=== PATIENT | female | born 1935 | race Caucasian/White ===

== ENCOUNTER 2017-06-28 14:54 | Emergency (ER) | payer OTHER ==
[2017-06-28] MEDS ORDERED: ONDANSETRON 4 MG/2 ML VIAL ONE (15:12)
[2017-06-28 15:26] LABS: Absolute Lymphocytes (CBC) 1.2 K/uL (0.7-4.9); Absolute Monocytes 0.6 K/uL (0.1-1.3); Absolute Neutrophil 10.5 K/uL (1.8-8.0); Basophils % 0.4 % (0-1.3); Eosinophils % 1.4 % (0-4.4); Hematocrit 36.4 % (36.0-45.0); Lymphocytes % 9.6 % (15.3-44.8); MCV 85.8 fL (80-100); MPV 7.8 fL (7.6-11.3); Monocytes % 4.6 % (3.3-12.3); RBC Red Blood Cell Count 4.25 M/uL (3.86-4.86)
[2017-06-28 15:32] LABS: Protime INR 0.86
[2017-06-28 15:34] LABS: BUN Blood Urea Nitrogen 35 mg/dL (6-20); Bicarbonate 34 mEq/L (21-31); Potassium 4.3 mEq/L (3.6-5.0); Sodium Level 128 mEq/L (135-145)
[2017-06-28 15:42] LABS: Glucose Level 501 mg/dL (65-120)
[2017-06-28] MEDS ORDERED: MEPERIDINE HCL 25 MG/0.5 ML ONE ×3 (15:48→17:04)
--- NOTE | 2017-06-28 15:48 | RAD REPORT ---
EXAM DESCRIPTION: CT - Head C Spine Cap Wo Con - 06/28/2017 3:28 pm CLINICAL HISTORY: Found on ground, head, neck, chest and abdomen pain, visual bruising COMPARISON: CT imaging October 2016. TECHNIQUE: Axial [address] head images were obtained. Axial [address] cervical spine images were obtain ed with sagittal and coronal reconstruction images reviewed. Axial 5 mm images of the chest, abdomen and pelvis were obtained. All CT scans are performed using dose optimization technique as appropriate and may include automated exposure control or mA/KV adjustment according to patient size. FINDINGS: Patient has baseline of moderate atrophy and chronic ischemic change. Ventricular size is in proportion. No epidural or subdural hematoma. There is no subarachnoid hemorrhage identifiable. Th ere is a linear hyperdensity along the midline tiffani not seen on any prior CT head imaging. This would be an unusual acute hemorrhage pattern. A small brainstem hemorrhage is possible triggering the sync opal event. Shear injury due to the fall would be possible as well. No midline shift or mass effect. Arterial and physiologic calcifications are present. Mastoid air katina ls and paranasal sinuses are clear. No skull fracture seen. The patient has a very large left frontal scalp hematoma. Cervical bodies are normal in height and alignment. No fracture or acute bone finding.Moderately prom inent degenerative changes are present involving the transverse ligament posterior to the dens and th e dens anterior arch C1 level. There is C2-3 disc space narrowing along with disc space narrowing at C 4-5, C5-6 and C6-7. Mild right foraminal encroachment present at C4-5. A more prominent foraminal e ncroachment on the right at C5-6. Mild bilateral foraminal encroachment at C6-7.No prevertebral soft tissue thickening or paraspinal mass.Central canal detail is inherently limited on CT imaging. CT chest shows no pneumothorax, pulmonary contusion or pleural fluid collection. Fibrotic lung change s are present. No mediastinal hematoma and the aorta and pulmonary arteries are unremarkable. No ches t will mass or abnormal axillary finding. No displaced rib fracture or other significant bony finding . Borderline to mild cardiomegaly is present. No pericardial thickening or effusion. Pacemaker is in place. Contusion or edema changes are present overlying the left shoulder joint and probably both hi p joints. CT abdomen and pelvis show no injury to solid abdominal viscera. Cholecystectomy clips are present. N o biliary tree dilatation. No acute bowel injury and no acute bowel process seen. A large duodenal di verticulum is seen. There is moderately large stool volume throughout the colon. Colon anastomotic si te in the sigmoid region shows no acute finding. No free air, free fluid or abnormal stranding. No he rnia, mass or bulky lymphadenopathy. No urinary bladder abnormality. Uterus is absent. Thoracic and lumbar spine degenerative changes are present without acute finding. IMPRESSION: Linear hyperdensity in the midline tiffani is present not seen on any prior imaging. Brains tem hemorrhage is suspected. This could be the precipitating event triggering syncope or could be sec ondary to the fall. No other intracranial hemorrhage findings. Patient has moderate severity atrophy and chronic ischemic change. There is a large left frontal scalp hematoma without skull fracture. Cervical spine degenerative changes are present as detailed. No fracture or acute finding. No significant CT Chest finding. No acute injury to the solid abdominal visceral or bowel. No free fluid or other acute traumatic abdo rossi or pelvic finding. Urinary bladder is distended.
[2017-06-28] MEDS ORDERED: Nicardipine/NS 25 MG/250 ML KIT IV ONE ×2 (15:54→19:19)
--- NOTE | 2017-06-28 16:11 | RAD REPORT ---
EXAM DESCRIPTION: RAD - Hand Left 3 View - 06/28/2017 3:56 pm CLINICAL HISTORY: Fall, left hand pain COMPARISON: None. FINDINGS: Prominent radiocarpal arthritic changes are present. Significant arthritic changes also pr esent at the first carpometacarpal joint. DIP and PIP joint arthritic changes are also seen. Small av ulsion fracture is suspected in the region of the ulnar styloid with adjacent soft tissue swelling. L ucency is also noted in the distal radius along the ulnar aspect on a single oblique projection which could be additional fracture.
--- NOTE | 2017-06-28 16:13 | RAD REPORT ---
EXAM DESCRIPTION: RAD - Shoulder Left 2 View - 06/28/2017 3:59 pm CLINICAL HISTORY: Left shoulder pain and hematoma. COMPARISON: None. FINDINGS: Soft tissue swelling is seen along the superolateral aspect of the shoulder. Glenohumeral arthritic changes are noted. No acute fracture or dislocation is seen.
--- NOTE | 2017-06-28 16:15 | RAD REPORT ---
EXAM DESCRIPTION: RAD - Hand Right 3 View - 06/28/2017 3:59 pm CLINICAL HISTORY: Pain and swelling. COMPARISON: None. FINDINGS: Prominent radiocarpal arthritic changes are present. Deformity of the distal radius has a chronic appearance. Diffuse osteopenia is seen. Mild soft tissue swelling. Significant ulnar positive variance is present. An acute fracture is not detected.
--- NOTE | 2017-06-28 16:32 | EDPHYS ---
Physician Documentation [facility] Name: Haven Lee Age: 81 yrs Sex: Female : 1935 Arrival Date: 06/28/2017 Time: 14:56 Bed 5 Private MD: ED Physician Omid Soliz HPI: 06/28 15:14 This 81 yrs old Female presents to ER via Unassigned with complaints of fall, rn head injury. 15:14 Details of fall: The patient fell from seated position. Onset: The symptoms/episode rn began/occurred just prior to arrival. Associated injuries: The patient sustained injury to the head, neck injury, injury to the abdomen. Severity of symptoms: At their worst the symptoms were moderate, in the emergency department the symptoms are unchanged. It is unknown whether or not the patient has had similar symptoms in the past. Per half-way, presents after fall, normally in wheelchair, unsure how fall, standing/sitting, hit head, + swelling/hematoma of scalp/left shoulder/bilateral hands/abd pain. . Historical: - Allergies: 15:27 Morphine; dm5 15:27 Sulfa (Sulfonamide Antibiotics); dm5 - PMHx: 15:27 Altered Mental Status; Alzheimers; Anemia; Angina; Arthritis; Cerebral infarction; CHF; dm5 Chronic ischemic heart disease; Chronic pain; CVA; Dementia; Depression; Diabetes - IDDM; Diverticulitis; Gait disturbance; Hyperlipidemia; Hypertension; insomnia; Migraines; MRSA; neuropathy; Repeated falls; UTI; angina pectoris; - Immunization history:: Adult Immunizations up to date. - Social history:: Smoking status: Patient/guardian denies using tobacco. - Immunization history: Last tetanus immunization: unknown. - Family history:: not pertinent. - Ebola Screening: : Patient negative for fever greater than or equal to 101.5 degrees Fahrenheit, and additional compatible Ebola Virus Disease symptoms Patient denies exposure to infectious person Patient denies travel to an Ebola-affected area in the 21 days before illness onset No symptoms or risks identified at this time. - Hospitalizations: : No recent hospitalization is reported. ROS: 15:14 Constitutional: Negative for fever, chills, and weight loss, Eyes: Negative for injury, rn pain, redness, and discharge, Neck: + neck pain Cardiovascular: Negative for chest pain, palpitations, and edema, Respiratory: Negative for shortness of breath, cough, wheezing, and pleuritic chest pain, Abdomen/GI: + abd pain and nausea MS/Extremity: Negative for injury and deformity, Skin: + ecchymosis Neuro: + headache and generalized weakness Exam: 15:14 Constitutional: Elderly female, holding head Head/Face: Normocephalic, + left rn scalp/forehead moderate hematoma that extends to left temporal region Eyes: Left pupil irregular (previous surgery), EOMI, no racoon eyes Neck: no midline tenderness Cardiovascular: Regular rate and rhythm with a normal S1 and S2. No gallops, murmurs, or rubs. Normal PMI, no JVD. No pulse deficits. Respiratory: Lungs have equal breath sounds bilaterally, clear to auscultation and percussion. No rales, rhonchi or wheezes noted. No increased work of breathing, no retractions or nasal flaring. Abdomen/GI: soft, mid abd tenderness, no rebound MS/ Extremity: Pulses equal, no cyanosis. Neurovascular intact. + left shoulder/bilateral hands with hematomas, mild painful ROM left shoulder Neuro: Awake, GCS 15, oriented to person, and situation. Cranial nerves II-XII grossly intact. Motor strength 5/5 in all extremities. Sensory grossly intact. Vital Signs: 15:08 BP 182 / 77; Pulse 69; Resp 19; Temp 99.4(O); Pulse Ox 100% on 2 lpm NC; Weight 79.38 dm5 kg (R); 15:32 BP 195 / 84; Pulse 70; Resp 17; Pulse Ox 100% on 2 lpm NC; dm5 15:45 BP 199 / 87; Pulse 68; Resp 19; Pulse Ox 99% on 2 lpm NC; dm5 16:00 BP 196 / 85; Pulse 66; Resp 16; Pulse Ox 100% on 2 lpm NC; dm5 16:11 BP 165 / 76; Pulse 66; Resp 19; Pulse Ox 100% ; dm5 16:15 BP 175 / 72; Pulse 66; Resp 16; Pulse Ox 100% on 2 lpm NC; dm5 16:22 BP 170 / 70; Pulse 67; Resp 15; Pulse Ox 99% on 2 lpm NC; dm5 16:32 BP 164 / 66; Pulse 67; Resp 14; Temp 99.5(O); Pulse Ox 99% on 2 lpm NC; dm5 17:00 BP 153 / 62; Pulse 65; Resp 14; Pulse Ox 99% on 2 lpm NC; dm5 17:07 BP 153 / 62; Pulse 65; Resp 14; Pulse Ox 99% on 2 lpm NC; dm5 17:15 BP 153 / 65; Pulse 64; Resp 13; Pulse Ox 99% on 2 lpm NC; dm5 17:30 BP 145 / 63; Pulse 63; Resp 13; Pulse Ox 99% on 2 lpm NC; dm5 17:45 BP 147 / 63; Pulse 62; Resp 12; Pulse Ox 100% on 2 lpm NC; dm5 18:04 BP 155 / 63; Pulse 63; Resp 12; Pulse Ox 100% on 2 lpm NC; dm5 18:15 BP 123 / 68; Pulse 99; Resp 13; Pulse Ox 99% on 2 lpm NC; dm5 18:30 BP 147 / 61; Pulse 62; Resp 13; Pulse Ox 99% on 2 lpm NC; dm5 18:45 BP 125 / 64; Pulse 63; Resp 16; Pulse Ox 98% on 2 lpm NC; dm5 18:48 BP 140 / 51; Pulse 62; Resp 17; Pulse Ox 97% on 2 lpm NC; dm5 19:19 BP 147 / 62; Pulse 62; Resp 12; Pulse Ox 99% on 2 lpm NC; mt NIH Stroke Scale Scores: 15:30 NIHSS Score: 3 dm5 Josue Coma Score: 15:00 Eye Response: spontaneous(4). Verbal Response: confused(4). Motor Response: obeys dm5 commands(6). Total: 14. 15:55 Eye Response: spontaneous(4). Verbal Response: confused(4). Motor Response: obeys dm5 commands(6). Total: 14. Trauma Score (Adult): 15:00 Eye Response: spontaneous(1); Verbal Response: confused(1); Motor Response: obeys dm5 commands(2); Systolic BP: > 89 mm Hg(4); Respiratory Rate: 10 to 29 per min(4); [place] Score: 14; Trauma Score: 12 15:55 Eye Response: spontaneous(1); Verbal Response: confused(1); Motor Response: obeys dm5 commands(2); Systolic BP: > 89 mm Hg(4); Respiratory Rate: 10 to 29 per min(4); Josue Score: 14; Trauma Score: 12 16:52 Eye Response: spontaneous(1); Verbal Response: confused(1); Motor Response: obeys dm5 commands(2); Systolic BP: > 89 mm Hg(4); Respiratory Rate: 10 to 29 per min(4); [place] Score: 14; Trauma Score: 12 17:49 Eye Response: spontaneous(1); Verbal Response: confused(1); Motor Response: obeys dm5 commands(2); Systolic BP: > 89 mm Hg(4); Respiratory Rate: 10 to 29 per min(4); Josue Score: 14; Trauma Score: 12 18:45 Eye Response: spontaneous(1); Verbal Response: confused(1); Motor Response: obeys dm5 commands(2); Systolic BP: > 89 mm Hg(4); Respiratory Rate: 10 to 29 per min(4); [place] Score: 14; Trauma Score: 12 MDM: 15:02 Patient medically screened. rn 15:50 ED course: Notified by radiology of hyperdense area in brainstem, some concern by phd intern that may have been precipitating event as brainstem hemorrhage. Organizing transfer to [facility].. 16:29 Differential diagnosis: closed head injury, contusion, fracture, multiple trauma. Data rn reviewed: vital signs, nurses notes, lab test result(s), radiologic studies, CT scan, plain films. 16:29 Counseling: I had a detailed discussion with the patient and/or guardian regarding: the rn historical points, exam findings, and any diagnostic results supporting the discharge/admit diagnosis, lab results, radiology results, the need to transfer to another facility, for higher level of care, [facility] does not immediately have the required specialist. ED course: Pt accepted for transfer to [facility] trauma service for further eval/consult. . 06/28 15:02 Order name: Basic Metabolic Panel; Complete Time: 16:04 rn 06/28 15:02 Order name: CBC with Diff; Complete Time: 15:48 rn 06/28 15:02 Order name: Creatinine for Radiology; Complete Time: 15:39 rn 06/28 15:02 Order name: Type And Screen; Complete Time: 16:28 rn 06/28 15:03 Order name: PT-INR; Complete Time: 15:43 rn 06/28 15:03 Order name: Ptt, Activated; Complete Time: 15:43 rn 06/28 15:02 Order name: CT Traumagram (Head C Spine CAP wo con); Complete Time: 16:32 rn 06/28 15:04 Order name: Ketone, Serum; Complete Time: 16:04 rn 06/28 15:04 Order name: XRAY Hand RIGHT 3 View; Complete Time: 16:23 rn 06/28 15:04 Order name: XRAY Hand LEFT 3 View; Complete Time: 16:23 rn 06/28 16:29 Order name: ABO/RH no charge; Complete Time: 16:32 EDMS 06/28 18:10 Order name: Glucose, Ancillary Testing EDMS 06/28 18:11 Order name: Glucose, Ancillary Testing EDMS 06/28 19:15 Order name: Glucose, Ancillary Testing EDMS 06/28 15:02 Order name: Labs collected and sent; Complete Time: 15:42 rn 06/28 15:04 Order name: Glucose Level; Complete Time: 15:43 rn 06/28 15:04 Order name: XRAY Shoulder LEFT 2 view; Complete Time: 16:23 rn 06/28 16:04 Order name: Splint - Sugar Tong - Forearm: left arm and right arm; Complete Time: 17:22 rn 06/28 17:21 Order name: EKG Electrocardiogram; Complete Time: 17:22 EDMS Administered Medications: 15:15 Drug: Zofran 4 mg Route: IVP; Site: left antecubital; dm5 16:54 Follow up: Response: No adverse reaction; Nausea is decreased dm5 15:55 Drug: Demerol - Meperidine 12.5 mg Route: IVP; Site: left antecubital; dm5 16:53 Follow up: Response: No adverse reaction; No adverse reaction. patient still complains dm5 of pain and forgets that she was given pain medication 16:00 Drug: Cardene 5 mg/hr Route: IV; Rate: 5 mg/hr; Site: left antecubital; dm5 16:15 Follow up: Rate change 7.5 mg/hr; cardene rate change ordered verbally by Dr. Bautista dm5 17:00 Follow up: Rate change 10 mg/hr; cardene rate change to 10mg/hr dm5 18:45 Follow up: Rate change 7.5 mg/hr; cardene adjust to 7.5 mg/hr dm5 19:40 Follow up: IV Status: Infusion continued upon transfer; IV Intake: 250ml ; a second bag dm5 of cardene started prior to pt transfer 16:12 Drug: Demerol - Meperidine 12.5 mg Route: IVP; Site: right antecubital; dm5 16:53 Follow up: Response: No adverse reaction; No adverse reaction. Pt still complains of dm5 pain and forgets that she has been given medication 17:06 Drug: Demerol - Meperidine 12.5 mg Route: IVP; Site: right antecubital; dm5 17:39 Follow up: Response: No adverse reaction; Pain is unchanged, physician notified dm5 18:16 Drug: Insulin Regular Human 8 units {Co-Signature: aa5 (Mindi Arizmendi RN).} Route: dm5 Sub-Q; Site: left upper arm; 19:40 Follow up: Response: Blood sugar is lowered dm5 Point of Care Testing: Blood Glucose: 15:05 Blood Glucose: 435 mg/dL; dm5 Ranges: Critical Glucose Levels:Adult <50 mg/dl or >400 mg/dl <40 mg/dl or >180 mg/dl Disposition: 06/28/17 16:32 Transfer ordered to [facility]. Diagnosis are Brainstem Hemorrhage, Syncope and collapse, Altered mental status, unspecified. - Reason for transfer: Higher level of care. - Accepting physician is Dr. Coulter. - Condition is Stable. - Problem is new. - Symptoms have improved. NIH Stroke Scale - NIH Stroke Score Date: 06/28/2017 Time: 15:30 Total Score = 3 1a. Level of Consciousness (LOC) - 0(Alert) 1b. Level of Consciousness (LOC) (Year \T\ Age) - 2(Neither) 1c. LOC Commands (Open \T\ Closes Eyes/Assayer) - 0(Both) 2. Best Gaze (Lateral Gaze Paresis) - 0(Normal) 3. Visual Field Loss - 1(Partial hemianopia) 4. Facial Palsy - 0(Normal) 5a. Left Arm: Motor (10-second hold) - 0(No drift) 5b. Right Arm: Motor (10-second hold) - 0(No drift) 6a. Left Leg: Motor (5-second hold - always test supine) - 0(No drift) 6b. Right Leg: Motor (5-second hold - always test supine) - 0(No drift) 7. Limb Ataxia (finger/nose \T\ heel/novoa - test with eyes open) - 0(Absent) 8. Sensory Loss (pinprick arms/legs/face) - 0(Normal) 9. Best Language: Aphasia (description/naming/reading) - 0(No aphasia) 10. Dysarthria (speech clarity - read or repeat words) - 0(Normal) 11. Extinction and Inattention (visual/tactile/auditory/spatial/personal) - 0(No abnormality) Initials: [facility] Signatures: Dispatcher [employer] EDMS Afia Pereira RN RN dm5 Omid Soliz MD MD rn Audri Calderon RN aa5 Corrections: (The following items were deleted from the chart) 15:19 15:14 Constitutional: Elderly female, holding head Head/Face: Normocephalic, + rn left scalp/forehead moderate hematoma that extends to left temporal region Eyes: Left pupil irregular (previous surgery), EOMI, no racoon eyes Neck: no midline tenderness Cardiovascular: Regular rate and rhythm with a normal S1 and S2. No gallops, murmurs, or rubs. Normal PMI, no JVD. No pulse deficits. Respiratory: Lungs have equal breath sounds bilaterally, clear to auscultation and percussion. No rales, rhonchi or wheezes noted. No increased work of breathing, no retractions or nasal flaring. Abdomen/GI: soft, mid abd tenderness, no rebound MS/ Extremity: Pulses equal, no cyanosis. Neurovascular intact. + left shoulder/bilateral hands with hematomas, mild painful ROM left shoulder Neuro: Awake and alert, GCS 15, oriented to person, place, time, and situation. Cranial nerves II-XII grossly intact. Motor strength 5/5 in all extremities. Sensory grossly intact. rn 19:41 16:32 06/28/2017 16:32 Transfer ordered to [address] Diagnosis is Brainstem Hemorrhage; Syncope and collapse; Altered mental status, unspecified. Reason for transfer: Higher level of care. Accepting physician is Dr. Coulter. Condition is Stable. Problem is new. Symptoms have improved. rn
--- NOTE | 2017-06-28 16:32 | ER ---
Nurse's Notes [facility] Name: Haven Lee Age: 81 yrs Sex: Female : 1935 Arrival Date: 06/28/2017 Time: 14:56 Bed 5 Private MD: Diagnosis: Brainstem Hemorrhage;Syncope and collapse;Altered mental status, unspecified Presentation: 06/28 15:00 Presenting complaint: EMS states: pt is wheelchair bound but attempted to get up to go dm5 to the bathroom. pt found on bathroom floor. pt has hematoma on left side forehead, left shoulder is bruised and swollen, hematomas on both arms. Pt c/o pain in base of skull and head. [facility] reports that patient is normally a\T\Ox4 but can only report name at this time. Transition of care: patient was received from another setting of care (long-term care facility), [facility]. Onset of symptoms was June 28, 2017 at 14:30. Risk Assessment: Do you want to hurt yourself or someone else? Other: unknown. pt is a\T\o x 1 and only complains of pain. Initial Sepsis Screen: Does the patient meet any 2 criteria? No. Patient's initial sepsis screen is negative. Does the patient have a suspected source of infection? No. Patient's initial sepsis screen is negative. Care prior to arrival: IV initiated. 20 GA, in the left antecubital area. 15:00 Method Of Arrival: EMS: [facility] 5 15:00 Acuity: MAXI 2 dm5 15:00 Mechanism of Injury: Fall out of chair an unknown distance. Trauma event details: dm5 Injury occurred in the [facility], Injury occurred: in an institution. Injury occurred: June 28, 2017 Injury occurred at: 14:30. Triage Assessment: 15:00 General: Appears uncomfortable, Behavior is cooperative, anxious. Pain: Complains of dm5 pain in left side of forehead and base of the skull. 15:00 Neuro: Level of Consciousness is awake, confused, Oriented to person, Office Messenger are equal dm5 bilaterally Moves all extremities. Gait is normally wheelchair bound. Speech is normal. Respiratory: Airway is patent Respiratory effort is even, unlabored, Respiratory pattern is regular. Derm: Skin is pink, warm \T\ dry. Bruising that is bluish purple on forehead, left and right forearms. Trauma Activation: Physician: ED Physician; Name: [email or web address]; Notified At: 15:00; Arrived At: Physician: General Surgeon; Name: ; Notified At: 15:00; Arrived At: Physician: Radiology; Name: ; Notified At: 15:00; Arrived At: Physician: Respiratory; Name: ; Notified At: 15:00; Arrived At: Physician: Lab; Name: ; Notified At: 15:00; Arrived At: Historical: - Allergies: 15:27 Morphine; dm5 15:27 Sulfa (Sulfonamide Antibiotics); dm5 - PMHx: 15:27 Altered Mental Status; Alzheimers; Anemia; Angina; Arthritis; Cerebral infarction; CHF; dm5 Chronic ischemic heart disease; Chronic pain; CVA; Dementia; Depression; Diabetes - IDDM; Diverticulitis; Gait disturbance; Hyperlipidemia; Hypertension; insomnia; Migraines; MRSA; neuropathy; Repeated falls; UTI; angina pectoris; - Immunization history:: Adult Immunizations up to date. - Social history:: Smoking status: Patient/guardian denies using tobacco. - Immunization history: Last tetanus immunization: unknown. - Family history:: not pertinent. - Ebola Screening: : Patient negative for fever greater than or equal to 101.5 degrees Fahrenheit, and additional compatible Ebola Virus Disease symptoms Patient denies exposure to infectious person Patient denies travel to an Ebola-affected area in the 21 days before illness onset No symptoms or risks identified at this time. - Hospitalizations: : No recent hospitalization is reported. Screenin:00 Abuse screen: Denies threats or abuse. Denies injuries from another. Nutritional dm5 screening: No deficits noted. Tuberculosis screening: No symptoms or risk factors identified. Fall risk At risk due to injury, prior history of falls, Intervention for positive screen: side rails up. 15:05 Fall Risk Fall in past 12 months (25 points). Secondary diagnosis (15 points) dm5 Alzheimer's, dementia, CVA, IV access (20 points). Ambulatory Aid- None/Bed Rest/Nurse Assist (0 pts). Gait- Normal/Bed Rest/Wheelchair (0 pts) Mental Status- Overestimates/Forgets Limitations (15 pts.). Total Peterson Fall Scale indicates High Risk Score (45 or more points). Fall prevention measures have been instituted. Side Rails Up X 2 Placed Close to Nursing Station Frequent Obs/Assessments Occuring. 15:30 Patient has been NPO before screening. The patient is alert, able to follow commands. dm5 but patient is confused. The patient does not exhibit slurred or garbled speech The patient is not exhibiting difficulty speaking. The patient does not exhibit difficulty understanding words. The patient is able to swallow own secretions with no drooling or need for suction. Patient tolerated one teaspoon of water. No drooling, immediate coughing, gurgling, or clearing of the throat was noted. The patient tolerated 90mL of water. No drooling, immediate coughing, gurgling, or clearing of the throat was noted. The patient passed the bedside swallow screening. Oral medications may be given as ordered. Contact Physician for further diet orders. Primary Survey: 15:00 A: Airway: patent, Oxygen via nasal cannula at 2 liters per minute. Trachea midline. dm5 Breathing/Chest: Respiratory pattern: regular, Respiratory effort: spontaneous, unlabored, Breath sounds: clear, Chest inspection: symmetrical rise and fall of the chest. Circulation: Pulses: palpable right radial artery, right dorsalis pedis artery, left radial artery and left posterior tibial artery. Skin color: pink, Skin temperature: warm. Disability Alert. 15:55 Reassessment Airway Airway Patent Oxygen Nasal cannula Breathing/Chest Respiratory dm5 pattern Regular Breath sounds Clear Chest inspection Symmetrical Circulation Heart rhythm Sinus rhythm Heart tones Present Pulses Palpable Color [place] Temperature Warm Disability Alert. 16:52 Reassessment Airway Airway Patent Oxygen Nasal cannula Trachea Midline Breathing/Chest dm5 Respiratory pattern Regular Breath sounds Clear Chest inspection Symmetrical Circulation Heart rhythm Sinus rhythm Heart tones Present Pulses Palpable Color [place] Temperature Warm. 17:49 Reassessment Airway Airway Patent Oxygen Nasal cannula Trachea Midline Breathing/Chest dm5 Respiratory pattern Regular Respiratory effort Spontaneous Unlabored Breath sounds Clear Chest inspection Symmetrical Circulation Heart rhythm Sinus rhythm Heart tones Present Pulses Palpable Color [place] Temperature Warm Disability Alert. 18:45 Reassessment Airway Airway Patent Oxygen Nasal cannula Trachea Midline Breathing/Chest dm5 Respiratory pattern Regular Respiratory effort Spontaneous Unlabored Breath sounds Clear Chest inspection Symmetrical Circulation Heart rhythm Sinus rhythm Heart tones Present Pulses Palpable Color [place] Temperature Warm Disability Alert. 19:36 pt resting. Reassessment Airway Airway Patent Oxygen Nasal cannula Trachea Midline dm5 Breathing/Chest Respiratory pattern Regular Respiratory effort Spontaneous Unlabored Breath sounds Clear Chest inspection Symmetrical Circulation Heart rhythm Sinus rhythm Heart tones Present Pulses Palpable Color [place] Temperature Warm Disability Verbal stimuli. Secondary Survey: 15:00 HEENT: Head Other hematoma on left side forehead Face No injury/deformity Eyes: No dm5 injury or deformity noted. to bilateral eyes. Ears: clear Nose: clear Throat: No injury or deformity noted. Gastrointestinal: Abdomen is distended, Other tender possibly unrelated to trauma. : No signs and/or symptoms were reported regarding the genitourinary system. Musculoskeletal: Circulation, motion, and sensation intact. Swelling present in left side of forehead, anterior aspect of left shoulder and left foot. 15:55 HEENT: Head Other hematoma on left side of forehead Face No injury/deformity Eyes: No dm5 injury or deformity noted. Ears: clear Nose: clear Throat: No injury or deformity noted. Gastrointestinal: Abdomen is distended. : No signs and/or symptoms were reported regarding the genitourinary system. Musculoskeletal: Circulation, motion, and sensation intact. Swelling present in left foot and anterior aspect of left shoulder. 17:49 HEENT: Head Other left side hematoma Face No injury/deformity Eyes: No injury or dm5 deformity noted. Ears: clear Nose: clear Throat: No injury or deformity noted. Gastrointestinal: Abdomen is distended. : No signs and/or symptoms were reported regarding the genitourinary system. Musculoskeletal: Circulation, motion, and sensation intact. Swelling present in anterior aspect of left shoulder. 18:45 HEENT: Head Other hematoma on left side of forehead. Face No injury/deformity Eyes: No dm5 injury or deformity noted. to bilateral eyes. Ears: clear Nose: clear Throat: No injury or deformity noted. Gastrointestinal: Abdomen is distended. : No signs and/or symptoms were reported regarding the genitourinary system. Musculoskeletal: Circulation, motion, and sensation intact. Swelling present in anterior aspect of left shoulder. C-collar remains in place per Dr. Bautista. has not been removed since application. 19:36 HEENT: Head Other left sided hematoma on forehead Face No injury/deformity Eyes: No dm5 injury or deformity noted. Ears: clear Nose: clear Throat: No injury or deformity noted. Gastrointestinal: Abdomen is distended. : No signs and/or symptoms were reported regarding the genitourinary system. Musculoskeletal: Assessment: 15:00 General: Appears in no apparent distress. uncomfortable, Behavior is cooperative, dm5 anxious. 15:00 Derm: left foot is red and swollen. dm5 15:55 Reassessment: No changes from previously documented assessment. pt repeatedly asks for dm5 pain medication and forgets that she has been given medication. Reassured patient and explained that we can not give her additional pain medication at this time.. Pain: Complains of pain in head. Neuro: Level of Consciousness is awake, obeys commands, obeys commands but is confused about whether or not she received pain medication. Oriented to person, Moves all extremities. Speech is normal. Cardiovascular: No deficits noted. Respiratory: No deficits noted. 16:52 Reassessment: No changes from previously documented assessment. Patient and/or family dm5 updated on plan of care and expected duration. Pain level reassessed. 17:49 Reassessment: No changes from previously documented assessment. Patient and/or family dm5 updated on plan of care and expected duration. Pain level reassessed. Family now present in room. Dr. Bautista updated family on plan of care. 18:45 Reassessment: No changes from previously documented assessment. Patient and/or family dm5 updated on plan of care and expected duration. Pain level reassessed. still awaiting transportation for transfer. 19:36 Reassessment: No changes from previously documented assessment. Patient and/or family dm5 updated on plan of care and expected duration. Pain level reassessed. [facility] arrived to transport patient.. Vital Signs: 15:08 BP 182 / 77; Pulse 69; Resp 19; Temp 99.4(O); Pulse Ox 100% on 2 lpm NC; Weight 79.38 dm5 kg (R); 15:32 BP 195 / 84; Pulse 70; Resp 17; Pulse Ox 100% on 2 lpm NC; dm5 15:45 BP 199 / 87; Pulse 68; Resp 19; Pulse Ox 99% on 2 lpm NC; dm5 16:00 BP 196 / 85; Pulse 66; Resp 16; Pulse Ox 100% on 2 lpm NC; dm5 16:11 BP 165 / 76; Pulse 66; Resp 19; Pulse Ox 100% ; dm5 16:15 BP 175 / 72; Pulse 66; Resp 16; Pulse Ox 100% on 2 lpm NC; dm5 16:22 BP 170 / 70; Pulse 67; Resp 15; Pulse Ox 99% on 2 lpm NC; dm5 16:32 BP 164 / 66; Pulse 67; Resp 14; Temp 99.5(O); Pulse Ox 99% on 2 lpm NC; dm5 17:00 BP 153 / 62; Pulse 65; Resp 14; Pulse Ox 99% on 2 lpm NC; dm5 17:07 BP 153 / 62; Pulse 65; Resp 14; Pulse Ox 99% on 2 lpm NC; dm5 17:15 BP 153 / 65; Pulse 64; Resp 13; Pulse Ox 99% on 2 lpm NC; dm5 17:30 BP 145 / 63; Pulse 63; Resp 13; Pulse Ox 99% on 2 lpm NC; dm5 17:45 BP 147 / 63; Pulse 62; Resp 12; Pulse Ox 100% on 2 lpm NC; dm5 18:04 BP 155 / 63; Pulse 63; Resp 12; Pulse Ox 100% on 2 lpm NC; dm5 18:15 BP 123 / 68; Pulse 99; Resp 13; Pulse Ox 99% on 2 lpm NC; dm5 18:30 BP 147 / 61; Pulse 62; Resp 13; Pulse Ox 99% on 2 lpm NC; dm5 18:45 BP 125 / 64; Pulse 63; Resp 16; Pulse Ox 98% on 2 lpm NC; dm5 18:48 BP 140 / 51; Pulse 62; Resp 17; Pulse Ox 97% on 2 lpm NC; dm5 19:19 BP 147 / 62; Pulse 62; Resp 12; Pulse Ox 99% on 2 lpm NC; mt [place] Coma Score: 15:00 Eye Response: spontaneous(4). Verbal Response: confused(4). Motor Response: obeys dm5 commands(6). Total: 14. 15:55 Eye Response: spontaneous(4). Verbal Response: confused(4). Motor Response: obeys dm5 commands(6). Total: 14. Trauma Score (Adult): 15:00 Eye Response: spontaneous(1); Verbal Response: confused(1); Motor Response: obeys dm5 commands(2); Systolic BP: > 89 mm Hg(4); Respiratory Rate: 10 to 29 per min(4); [place] Score: 14; Trauma Score: 12 15:55 Eye Response: spontaneous(1); Verbal Response: confused(1); Motor Response: obeys dm5 commands(2); Systolic BP: > 89 mm Hg(4); Respiratory Rate: 10 to 29 per min(4); Josue Score: 14; Trauma Score: 12 16:52 Eye Response: spontaneous(1); Verbal Response: confused(1); Motor Response: obeys dm5 commands(2); Systolic BP: > 89 mm Hg(4); Respiratory Rate: 10 to 29 per min(4); [place] Score: 14; Trauma Score: 12 17:49 Eye Response: spontaneous(1); Verbal Response: confused(1); Motor Response: obeys dm5 commands(2); Systolic BP: > 89 mm Hg(4); Respiratory Rate: 10 to 29 per min(4); Josue Score: 14; Trauma Score: 12 18:45 Eye Response: spontaneous(1); Verbal Response: confused(1); Motor Response: obeys dm5 commands(2); Systolic BP: > 89 mm Hg(4); Respiratory Rate: 10 to 29 per min(4); Josue Score: 14; Trauma Score: 12 NIH Stroke Scale Scores: 15:30 NIHSS Score: 3 dm5 ED Course: 14:56 Patient arrived in ED. em1 15:00 Oxygen administration via nasal cannula. Thermoregulation: warm blanket given to dm5 patient. 15:00 Patient has correct armband on for positive identification. Placed in gown. Side rails dm5 up X2. Oxygen administration via nasal cannula \T\ 2L/min. 15:00 Arm band placed on right wrist. Patient placed in an exam room, on a stretcher, on dm5 classroom monitor, on pulse oximetry. 15:02 Omid Soliz MD is Attending Physician. rn 15:05 Rigid cervical collar applied. dm5 15:05 Maintain EMS IV. Dressing intact. Good blood return noted. Site clean \T\ dry. Gauge \T\ dm 5 site: 20G LAC. 15:10 EKG done, by special procedures tech. reviewed by Omid Soliz MD. at1 15:21 Afia Pereira, RN is Primary Nurse. dm5 15:[address] via stretcher. nj 15:25 Triage completed. dm5 15:27 CT completed. Patient tolerated procedure well. Patient moved back from CT. nj 15:28 CT Traumagram (Head C Spine CAP wo con) In Process Unspecified. EDMS 15:43 Notified ED physician of a critical lab result(s). Glucose 501. sg 15:56 XRAY Hand RIGHT 3 View In Process Unspecified. EDMS 15:56 XRAY Hand LEFT 3 View In Process Unspecified. EDMS 15:56 X-ray completed. Portable x-ray completed in exam room. Patient tolerated procedure kp1 poorly. 15:56 XRAY Shoulder LEFT 2 view In Process Unspecified. EDMS 16:10 Inserted saline lock: 20 gauge in right antecubital area, using aseptic technique. dm5 17:00 Orthoglass splint: Sugar tong splint applied on right arm. Radial pulse present and jb1 within normal limits before and after application of splint. Capillary refill was three seconds before and after application of splint. 17:02 Orthoglass splint: Volar splint applied on left arm Radial pulse present and within jb1 normal limits before and after application of splint. Capillary refill was three seconds before and after application of splint. 17:30 transfer transportation to receiving facility. dm5 17:53 No provider procedures requiring assistance completed. dm5 19:39 Patient transferred, IV remains in place. dm5 Administered Medications: 15:15 Drug: Zofran 4 mg Route: IVP; Site: left antecubital; dm5 16:54 Follow up: Response: No adverse reaction; Nausea is decreased dm5 15:55 Drug: Demerol - Meperidine 12.5 mg Route: IVP; Site: left antecubital; dm5 16:53 Follow up: Response: No adverse reaction; No adverse reaction. patient still complains dm5 of pain and forgets that she was given pain medication 16:00 Drug: Cardene 5 mg/hr Route: IV; Rate: 5 mg/hr; Site: left antecubital; dm5 16:15 Follow up: Rate change 7.5 mg/hr; cardene rate change ordered verbally by Dr. Bautista dm5 17:00 Follow up: Rate change 10 mg/hr; cardene rate change to 10mg/hr dm5 18:45 Follow up: Rate change 7.5 mg/hr; cardene adjust to 7.5 mg/hr dm5 19:40 Follow up: IV Status: Infusion continued upon transfer; IV Intake: 250ml ; a second bag dm5 of cardene started prior to pt transfer 16:12 Drug: Demerol - Meperidine 12.5 mg Route: IVP; Site: right antecubital; dm5 16:53 Follow up: Response: No adverse reaction; No adverse reaction. Pt still complains of dm5 pain and forgets that she has been given medication 17:06 Drug: Demerol - Meperidine 12.5 mg Route: IVP; Site: right antecubital; dm5 17:39 Follow up: Response: No adverse reaction; Pain is unchanged, physician notified dm5 18:16 Drug: Insulin Regular Human 8 units {Co-Signature: aa5 (Mindi Arizmendi RN).} Route: dm5 Sub-Q; Site: left upper arm; 19:40 Follow up: Response: Blood sugar is lowered dm5 Point of Care Testing: Blood Glucose: 15:05 Blood Glucose: 435 mg/dL; dm5 Ranges: Intake: 15:55 PO: 0ml; IV: 100ml (IV Fluid); Total: 100ml. dm5 19:40 IV: 250ml; Total: 350ml. dm5 19:41 IV: 150ml (IV Fluid); Total: 500ml. dm5 15:55 no output at this time dm5 Output: 15:55 Urine: 0ml; Total: 0ml. dm5 19:06 Urine: 1ml (Voided); Total: 1ml. dm5 15:55 no output at this time dm5 Outcome: 16:32 ER care complete, transfer ordered by rn 17:49 Patient's length of stay in the Emergency Department was greater than 2 hours. several dm5 transfers happening at the same time with limited transportation. [facility] was contacted and we were told it would be at least an hour before they would be here for transport.Patient's length of stay extended due to 19:36 Transferred by ground EMS to [facility], Transfer form completed. X-rays sent dm5 w/ patient. 19:36 Condition: stable 19:41 Patient left the ED. dm5 NIH Stroke Scale - NIH Stroke Score Date: 06/28/2017 Time: 15:30 Total Score = 3 1a. Level of Consciousness (LOC) - 0(Alert) 1b. Level of Consciousness (LOC) (Year \T\ Age) - 2(Neither) 1c. LOC Commands (Open \T\ Closes Eyes/Report Programmer) - 0(Both) 2. Best Gaze (Lateral Gaze Paresis) - 0(Normal) 3. Visual Field Loss - 1(Partial hemianopia) 4. Facial Palsy - 0(Normal) 5a. Left Arm: Motor (10-second hold) - 0(No drift) 5b. Right Arm: Motor (10-second hold) - 0(No drift) 6a. Left Leg: Motor (5-second hold - always test supine) - 0(No drift) 6b. Right Leg: Motor (5-second hold - always test supine) - 0(No drift) 7. Limb Ataxia (finger/nose \T\ heel/novoa - test with eyes open) - 0(Absent) 8. Sensory Loss (pinprick arms/legs/face) - 0(Normal) 9. Best Language: Aphasia (description/naming/reading) - 0(No aphasia) 10. Dysarthria (speech clarity - read or repeat words) - 0(Normal) 11. Extinction and Inattention (visual/tactile/auditory/spatial/personal) - 0(No abnormality) Initials: dm5 Signatures: Dispatcher [employer] EDMS Ernesto Fulton jb1 Afia Pereira RN RN dm5 Mau Velásquez RN RN sg Nieto, Roman, MD MD rn Martinez, Eric em1 Palak chilel, fructose loader EKG Tat1 Jovany López nm [place], [facility] Mindi Arizmendi RN aa5 Corrections: (The following items were deleted from the chart) 15:29 15:27 General: Appears uncomfortable, Behavior is cooperative, anxious, dm5 dm5 15:29 15:27 Pain: Complains of pain in left side of forehead and base of the skull dm5dm5 16:51 16:17 Rate change 7.5 mg/hr dm5 dm5 16:51 16:[address] Lily iyer dm5 16:52 16:17 Rate change 7.5 mg/hr dm5 dm5 16:52 16:51 Rate change 7.5 mg/hr; cardene rate change ordered verbally by Dr. Neito dm5 dm5 16:53 16:[address] Lily rich5 dm5 17:37 15:08 BP 182 / 77; Pulse 69bpm; Resp 19bpm; Pulse Ox 100% 2 lpm Nasal Cannula; dm5 Temp 99.4F Oral; jb1 18:59 17:49 Josue Score=15, Trauma Score=12, dm5 dm5
[2017-06-28] MEDS ORDERED: INSULIN -REGULAR HUMAN 50 UNIT/0.5 ML ML ONE (18:14)
[2017-06-28 21:31] VITALS: TEMP 99.5
[2017-06-28 21:44] VITALS: BP 147/62; O2SAT 99
--- NOTE | 2017-06-28 22:52 | EKG ---
Test Date: 2017-06-28 Test Time: 15:05:09 Industrial Equipment Wirer: NANCY MEASUREMENT RESULTS: Intervals: Rate: 70 [place]: 122 QRSD: 122 QT: 394 QTc: 425 [place]: P: 38 [place]: 122 QRS: -82 T: 101 INTERPRETIVE STATEMENTS: Atrial-sensed ventricular-paced rhythm with frequent AV dual-paced complexes and with occasional supraventricular complexes and Biventricular pacemaker detected Abnormal ECG Compared to ECG 03/13/2017 17:37:31 No significant changes Electronically Signed On 06-28-17 22:51:58 CDT by Prasad Richardson
== END 2017-06-28 19:41 | disposition short-term general hospital (02) ==
LOC: ER 14:54
DX: I61.3 Nontraumatic intracerebral hemorrhage in brain stem (principal); R55 Syncope and collapse; R29.703 NIHSS score 3; G30.9 Alzheimer's disease, unspecified; F02.80 Dementia in other diseases classified elsewhere, unspecified severity, without behavioral disturbance, psychotic disturbance, mood disturbance, and anxiety; W05.0XXA Fall from non-moving wheelchair, initial encounter; Y93.89 Activity, other specified; Y92.129 Unspecified place in nursing home as the place of occurrence of the external cause; Z88.5 Allergy status to narcotic agent; Z88.2 Allergy status to sulfonamides
CPT/HCPCS: 36415; 70450; 71250; 72125; 73030; 73130 ×2; 80048; 82009; 82962 ×3; 85025; 85610; 85730; 86850; 86900; 86901; 93005; J2175 ×3; J2405; 96372; 99285